=== PATIENT | female | born 1955 | race Caucasian/White ===

== ENCOUNTER → 2019-10-28 | Outpatient (CLI) | payer OTHER ==
--- NOTE | 2019-10-29 11:39 | CT ---
Procedure: CT LUNG SCREENING Exam Date: October 28, 2019. Ordering Provider: Katherine Staples Clinical Indication: PERSONAL HISTORY OF NICOTINE DEPENDENCE current cigarette smoker. 30 pack years. This patient meets eligibility criteria for low-dose CT lung cancer screening. Comparison: None. Technique: Using a multislice scanner, sequential helical axial imaging was obtained in the thorax, 2.5 mm thickness, 2.5 mm separation, from the level of the thoracic inlet through the lung bases without IV contrast. A low dose protocol was utilized for BMI less than 30: BMI: 19.4. CTDI: 1.76 mGy. 120. kVp. 45 mA. DLP 70 mGy-cm. 2D sagittal and coronal reconstructed images, 6.0 mm thickness, were obtained. This exam was performed according to our departmental dose optimization program which includes use of automated exposure control, adjustment of the mA and/or kV according to patient size and/or use of iterative reconstruction technique. Nodule measurements under 10 mm are given as mean value of 3 axes diameters. FINDINGS: Lungs and large airways: Multiple bilateral parenchymal blebs with variable sizes and more numerous in the upper lung couch. 5.1 mm subpleural nodule in the lateral lingula with partially smooth and partially irregular margins on axial series 2, image 58. 4 mm dense scarring or nodule is elongated and seen within the apex of the superior segment left lower lobe that abutting the superior aspect of the left major fissure on image 2/45. Bilateral mild posterior dependent atelectasis lower lobe bases. No larger nodules or masses. No focal infiltrates. Pleura and space: Bilateral multifocal thickening. Mediastinum and tanya: evaluation limited by low dose technique and lack of IV contrast. Small nodes but no dominant soft tissue masses. Heart and great vessels: Ascending aorta 3.5 cm caliber with atherosclerotic wall calcification. Minimal coronary artery calcifications. Chest wall, lower neck, axillae: Evaluation also limited by same factors as described above. Normal size axillary nodes. Upper abdomen: Evaluation limited by low-dose technique. No free air or free fluid. Normal size and density of the adrenal glands and spleen. Osseous structures: Evaluation limited by low dose MIP technique. Upper T11 endplate is slightly depressed with sclerotic appearance of the upper vertebral body which is also extending into the left pedicle. No retropulsion. Moderate bilateral T10-T11 foraminal narrowing. 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 IMPRESSION: 1. No abnormal lung nodules. Nodules in the lateral lingula and left lower lobe are less than 6 mm in mean diameter. Emphysematous changes predominantly upper lung couch. No mass or focal infiltrate. [facility] Best Practice Recommendations: please see below for Lung RADS category and FOLLOW-UP.* *Lung RADS category CATEGORY 2S - Nodules with a very low likelihood (less than 1%) of becoming a clinically active cancer due to size or lack of growth. Nodules: Perifissural nodule(s) < 10 mm. (526mm3). Solid or part solid nodule(s) less than 6mm (113.1 mm3), new solid nodule less than 4mm (33.5 mm3). Ground glass nodule(s) less than 30mm (27983.2 mm3) or unchanged or slow growing ground glass nodule 30mm or greater. Cat 3 or 4 nodule unchanged for 3 or more months. FOLLOW-UP: Continue annual screening with a Low Dose Chest CT in 12 months for re-evaluation. 2. Slight depression of the superior T11 endplate with sclerotic appearance of the vertebral body. Correlate with clinical findings. If acute or subacute compression fracture or thoracic spine injury is suspected, consider follow-up MRI thoracic spine without contrast. Electronically signed by: Festus Omer MD 10/29/2019 11:38 AM CDT
== END ==
LOC: CT 08:39
PROVIDERS: ATTEND Family Medicine
DX: Z87.891 Personal history of nicotine dependence (principal); R91.8 Other nonspecific abnormal finding of lung field; J43.9 Emphysema, unspecified; M51.84 Other intervertebral disc disorders, thoracic region